=== PATIENT | female | born 1975 | race Caucasian/White ===

== ENCOUNTER 2024-11-18 10:45 | Inpatient (IN) | payer OTHER ==
[~2024-11-18] VITALS: Ht 160 cm; Wt 87.1 kg
[2024-11-18 10:12] LABS: BASO % 0.4 % (0.1-1.2); EOS # 0.16 (0.04-0.54); EOS % 1.9 % (0.7-7.0); LYMPH # 2.77 (1.18-3.74); LYMPH % 32.4 % (19.3-53.1); MEAN PLATELET VOLUME 9.70 fl (9.4-12.4); MONO # 0.72 (0.24-0.82); MONO % 8.4 % (4.7-12.5); NEUT # 4.84 (1.56-6.13); NEUT % 56.7 % (34.0-71.1); RED CELL DISTRIBUTION WIDTH 12.1 % (11.6-14.4)
[2024-11-18 10:25] LABS: URINE APPEARANCE Clear; URINE BILIRRUBIN Negative (NEGATIVE); URINE BLOOD Small; URINE COLOR Yellow; URINE GLUCOSE Negative (NEGATIVE); URINE KETONE Negative (NEGATIVE); URINE LEUKOCYTE Negative; URINE NITRATE Negative; URINE PROTEIN Negative (NEGATIVE); URINE UROBILINOGEN 0.2 E.U./dl
[2024-11-18 10:27] LABS: URINE BACTERIA 551.9 uL (0.0-1933); URINE EPITHELIAL CELLS 20.3 uL (0.0-38.8); URINE RBC 17.7 uL (0.0-20.8); URINE WBC 5.2 uL (0.0-23.2)
[2024-11-18 10:30] LABS: URINE CAST 0.00 uL (0.0-1.40)
[2024-11-18 10:48] LABS: INR 1.0
[2024-11-18] MEDS ORDERED: METFORMIN HCL750 MG PO (10:50)
[2024-11-18] MEDS ORDERED: PROTONIX40 MG PO (10:51)
[2024-11-18] MEDS ORDERED: COZAAR50 MG PO (10:51)
[2024-11-18] MEDS ORDERED: DUPIXENT200 MG/1.1 (10:51)
[2024-11-18 10:52] VITALS: BP 144/89
[2024-11-18 11:16] LABS: ALT/SGPT 38.0 U/L (12-78); AST/SGOT 29.0 U/L (15-37); BILIRUBIN TOTAL 0.8 mg/dL (0.3-1.2); BUN CREA RATIO 17.0 (7.0-25.0); CREATININE SERUM 0.63 mg/dL (0.55-1.02); GFR 100.86; GLOBULINA 3.7 G/DL (2.4-3.5); GLUCOSE FASTING 99.0 mg/dL (65-100); OSMOLALITY SERUM 281.0 MOSM/KG (275-295)
[2024-11-19] MEDS ORDERED: DEXAMETHASONE SODIUM PHOSPHATE 4 MG/ML VIAL ONE ×2 (09:49→10:15)
[2024-11-19] MEDS ORDERED: CEFAZOLIN SODIUM 1,000 MG VIAL ONE (11:05)
[2024-11-19] MEDS ORDERED: MORPHINE SULFATE 4 MG/ML VIAL IV ONE ×2 (12:20→13:05)
[2024-11-19] MEDS ORDERED: ENALAPRILAT DIHYDRATE 1.25 MG/ML VIAL IV PRN (17:15)
[2024-11-19] MEDS ORDERED: ONDANSETRON HCL 2 MG/ML VIAL IV PRN (17:15)
[2024-11-19] MEDS ORDERED: LOSARTAN POTASSIUM 50 MG TABLET PO SCH (20:14)
[2024-11-19] MEDS ORDERED: PANTOPRAZOLE SODIUM 40 MG/VIAL VIAL IV PUSH SCH (21:00)
[2024-11-20] MEDS ORDERED: TRAMADOL HCL 50 MG TABLET PO SCH (01:00)
[2024-11-20] MEDS ORDERED: DIPHENHYDRAMINE HCL 75 MG,LIDOCAINE HCL 30 ML,MAG HYDROX/ALUMINUM HYD/SIMETH 30 ML PO SCH (01:00)
[2024-11-20] MEDS ORDERED: ACETAMINOPHEN 500 MG GEL..CAP PO SCH (01:00)
[2024-11-20 01:32] VITALS: BP 125/84; O2SAT 96
[2024-11-20 06:13] LABS: BASO % 0.1 % (0.1-1.2); EOS # 0.00 (0.04-0.54); EOS % 0.0 % (0.7-7.0); LYMPH # 1.33 (1.18-3.74); LYMPH % 8.9 % (19.3-53.1); MEAN PLATELET VOLUME 10.10 fl (9.4-12.4); MONO # 0.72 (0.24-0.82); MONO % 4.8 % (4.7-12.5); NEUT # 12.86 (1.56-6.13); NEUT % 85.9 % (34.0-71.1); RED CELL DISTRIBUTION WIDTH 12.0 % (11.6-14.4)
[2024-11-20 06:44] LABS: ALT/SGPT 39.0 U/L (12-78); AST/SGOT 27.0 U/L (15-37); BILIRUBIN TOTAL 0.65 mg/dL (0.3-1.2); BUN CREA RATIO 15.0 (7.0-25.0); CREATININE SERUM 0.66 mg/dL (0.55-1.02); GFR 95.59; GLOBULINA 3.4 G/DL (2.4-3.5); GLUCOSE FASTING 158.0 mg/dL (65-100); OSMOLALITY SERUM 280.0 MOSM/KG (275-295)
[2024-11-20 08:09] VITALS: BP 124/82; O2SAT 93
[2024-11-20] MEDS ORDERED: CYCLOBENZAPRINE HCL 5 MG TABLET PO SCH (17:00)
[2024-11-20 17:10] VITALS: BP 133/80; O2SAT 97
== END 2024-11-20 17:00 | DRG 627 ==
LOC: SURH 11-19 08:17 → O/R 11-19 09:00 → SURH 11-19 13:15
PROVIDERS: Internal Medicine; ADMIT Surgery; ATTEND Surgery
PROC: 0GTG0ZZ Resection of Left Thyroid Gland Lobe, Open Approach (ICD-10-PCS; principal; 2024-11-19 13:15)
DX: D34 Benign neoplasm of thyroid gland (principal); E04.2 Nontoxic multinodular goiter